=== PATIENT | male | born 2000 | race Caucasian/White ===

== ENCOUNTER → 2020-01-01 14:35 | Outpatient (CLI) | payer BC, SELFPAY ==
--- NOTE | ~2020-01-01 | XR_ITS ---
XR fl inj shoulder LT - MR/CT DATE: 01/01/2020 16:28 INDICATION: Acute left shoulder pain TECHNIQUE: The purpose and technique of the procedure was explained to the patient. The patient indic ated understanding and gave consent. With the patient recumbent on the fluoroscopy table, the skin over the anterior aspect of the right s houlder was prepared with sterile solution. Sterile drape was applied. 1% lidocaine local anesthetic was administered to the skin and underlying subcutaneous tissues over the glenohumeral joint. Subsequ ently, a 22-gauge spinal needle was introduced into the glenohumeral joint with fluoroscopic guidance . 12 cc mixed radiographic and MR contrast material and lidocaine was injected into the glenohumeral joint under fluoroscopic visualization, confirming complete intra-articular injection. A single front al radiograph exposure was made to confirm intra-articular position of the contrast material. The nee dle was subsequently withdrawn. The patient was very cooperative and tolerated the procedure well, without complaint. IMPRESSION: Successful fluoroscopically guided glenohumeral intra-articular injection of radiographic and MR contrast agents for MRI shoulder examination Reviewed, dictated and finalized at [facility]. Reviewed, dictated and finalized at [facility]. [facility] [employer] IMPRESSION: Successful fluoroscopically guided glenohumeral intra-articular inj ection of radiographic and MR contrast agents for MRI shoulder examination
--- NOTE | ~2020-01-01 | MR_ITS ---
EXAMINATION: MR shoulder LT w con DATE: 01/01/2020 17:25 INDICATION: Acute onset left shoulder pain TECHNIQUE: Magnetic resonance imaging (MRI) of the left shoulder was performed following intra-artic ular gadolinium contrast injection and without intravenous contrast. Details of the glenohumeral join t injection have been dictated separately. Sequences included axial T2-weighted FS FSE, axial T1-scott ghted FS FSE, coronal oblique T1-weighted FS FSE, coronal oblique T2-weighted FSE, sagittal T2-weight ed FS FSE, sagittal T1-weighted FSE, and ABER (abduction external rotation) T1-weighted FS FSE. COMPARISON: None. FINDINGS: Coracoacromial arch: The acromion undersurface is convex in morphology (type IV). The coracoacromial ligament is normal. A cromioclavicular joint is normal. Rotator cuff: The supraspinatus, infraspinatus and teres minor are normal. The subscapularis is normal. Normal rota tor cuff muscle bulk and signal. Biceps tendon, glenoid labrum and glenohumeral cartilage: Long head of the biceps tendon is normal. Labrum is normal with a relatively shallow normal sublabral sulcus with smooth margins at the inner base of the anterosuperior labrum. Glenohumeral cartilage i s normal. Bones and other: Normal marrow signal with no edema, fracture or abnormal marrow replacing process. Mild cystic change at the posterior greater tuberosity. There are couple low signal intensity bone islands at the media l aspect of the humeral head. No abnormal fluid signal in the subacromial/subdeltoid bursa to suggest bursitis. IMPRESSION: 1. Normal left shoulder MRI arthrogram. Reviewed, dictated and finalized at location . [facility]
== END ==
DX: M25.512 Pain in left shoulder (principal)
CPT/HCPCS: 23350; 73222; A9577; Q9966